=== PATIENT | female | born 1950 | race Caucasian/White ===

== ENCOUNTER 2024-12-30 16:00 | Outpatient (CLI) | payer MEDICARE, OTHER | END 2024-12-30 16:01 | disposition home or self-care (01) | LOC: NAV RAD 16:00 | PROVIDERS: ATTEND Student in an Organized Health Care Education/Training Program | DX: J20.8 Acute bronchitis due to other specified organisms (principal); J98.6 Disorders of diaphragm | CPT/HCPCS: 71045 ==

== ENCOUNTER 2024-12-30 17:14 | Emergency (ER) | payer MEDICARE, OTHER ==
[~2024-12-30 17:14] MED LIST: Iopamidol 370 76% 100 ML VIAL ONE
[2024-12-30 17:58] LABS: %Neutrophils 63.2 % (42.0-75.0); Hematocrit 36.4 % (36.0-47.0); Hemoglobin 11.9 g/dL (12.0-16.0); Manual Diff?? NO; Mean Corpuscular Hemoglobin 29.0 pg (27.0-31.0); Mean Corpuscular Volume 88.2 fl (78.0-98.0); Platelet Count 280 10x3/uL (130-400); Red Blood Cell (RBC) Count 4.13 mill/uL (4.20-5.40); White Blood Cell (WBC) Count 7.5 10x3/uL (4.8-10.8)
[2024-12-30 17:59] LABS: #Basophils 0.0 thou/uL (0.0-0.2); #Eosinophils 0.5 thou/uL (0.0-0.7); #Lymphocytes 1.6 thou/uL (1.20-3.40); #Monocytes 0.6 thou/uL (0.11-0.59); #Neutrophils 4.7 thou/uL (1.40-6.50); %Basophils 0.4 % (0.0-1.0); %Eosinophils 6.7 % (0.0-10.0); %Lymphocytes 21.1 % (21.0-51.0); %Monocytes 8.5 % (0.0-10.0)
[2024-12-30 18:07] LABS: ALT (SGPT) Less than 7 U/L (Less than 34); AST (SGOT) 30 U/L (11-34); Albumin 3.5 g/dL (3.1-4.5); Alkaline Phosphatase 135 U/L (40-110); Anion Gap 14 mmol/L (10-20); BUN (Urea Nitrogen) 13 mg/dL (9.8-20.1); Bilirubin, Total 0.4 mg/dL (0.3-1.2); Calc. Creatinine Clearance 0 mL/min (70-130); Calcium 9.7 mg/dL (7.8-10.44); Carbon Dioxide 24 mmol/L (23-31); Chloride 105 mmol/L (98-107); Globulin 2.9 g/dL (2.4-3.5); Glucose 122 mg/dL (83-110); Potassium 3.2 mmol/L (3.5-5.1); Sodium 140 mmol/L (136-145)
[2024-12-30] MEDS ORDERED: Famotidine/PF 20 mg/2ml Vial ONE (18:27)
[2024-12-30] MEDS ORDERED: diphenhydrAMINE 50 MG/ML VIAL ONE (18:27)
[2024-12-30] MEDS ORDERED: hydrALAZINE 20 MG/ML VIAL ONE (20:06)
[2024-12-30] MEDS ORDERED: Acetaminophen 500 MG TAB ONE (21:29)
== END 2024-12-30 22:18 | disposition home or self-care (01) ==
LOC: NAV ERS 17:14
DX: J06.9 Acute upper respiratory infection, unspecified (principal); R91.8 Other nonspecific abnormal finding of lung field; I10 Essential (primary) hypertension; Z79.899 Other long term (current) drug therapy; J20.8 Acute bronchitis due to other specified organisms; J98.6 Disorders of diaphragm
CPT/HCPCS: 74177; 80053; 85025; 96374; 96375; 99284; J0360; J1200; J1308; Q9967; 71045